=== PATIENT | female | born 1950 | race Caucasian/White ===

== ENCOUNTER 2020-03-06 11:03 | Inpatient (IN) | payer OTHER ==
[~2020-03-06] VITALS: Ht 172.7 cm; Wt 55.0 kg
[2020-03-06] MEDS ORDERED: ondansetron/PF 4mg/2ml inj IV ONE (11:15)
[2020-03-06] MEDS ORDERED: morphine 4 MG/ML inj SYRINge IV ONE (11:15)
[2020-03-06 11:30] LABS: HEMATOCRIT 42.9 % (35.0-45.0); MEAN CORPUSCULAR HEMOGLOBIN 31.8 PG (27.0-31.0); RED BLOOD COUNT 4.54 X10'6 (4.20-5.60); RED CELL DISTRIBUTION WIDTH 13.5 % (11.5-14.5)
[2020-03-06 11:32] LABS: BASOPHILS # (AUTO) 0.1 X10'3 (0-0.2); BASOPHILS % (AUTO) 0.9 % (0-1); EOSINOPHILS # (AUTO) 0.8 X10'3 (0-0.9); EOSINOPHILS % (AUTO) 7.9 % (0-6); HEMOGLOBIN 14.5 g/dl (12.0-16.0); LYMPHOCYTES # (AUTO) 2.7 X10'3 (1.1-4.8); LYMPHOCYTES % (AUTO) 26.1 % (21-51); MEAN CORPUSCULAR HGB CONC 33.7 g/dL (33.0-36.5); MEAN CORPUSCULAR VOLUME 94.5 FL (78-98); MEAN PLATELET VOLUME 8.6 FL (7.4-10.4); MONOCYTES # (AUTO) 0.7 X10'3 (0-0.9); NEUTROPHILS % (AUTO) 58.1 % (42-75); PLATELET COUNT 170 X10'3 (140-440); WHITE BLOOD COUNT 10.3 X10'3 (4.5-11.0)
[2020-03-06 11:48] LABS: ALANINE AMINOTRANSFERASE 19 U/L (12-78); ALBUMIN 3.3 G/DL (3.4-5.0); ALKALINE PHOSPHATASE 55 IU/L (46-116); ANION GAP 8 (8-16); ASPARTATE AMINO TRANSFERASE 15 U/L (10-37); BILIRUBIN,TOTAL 0.4 MG/DL (0.1-1.0); BLOOD UREA NITROGEN 24 MG/DL (7-18); BUN/CREATININE RATIO 18.6 (6.6-38.0); CALCIUM 9.1 MG/DL (8.5-10.1); CHLORIDE 107 MMOL/L (99-107); CREATININE 1.29 MG/DL (0.40-0.90); GLUCOSE 105 MG/DL (70-104); POTASSIUM 4.2 MMOL/L (3.5-5.1); SODIUM 142 MMOL/L (135-145); TOTAL CARBON DIOXIDE 27.2 MMOL/L (24-32); TOTAL PROTEIN 6.5 G/DL (6.4-8.2); eGFR 41 ML/MIN
[2020-03-06] MEDS ORDERED: mag hydrox/Alum hydrox/simeth 30ml oral suspension PO PRN (13:10)
[2020-03-06] MEDS ORDERED: acetaminophen 325mg tablet PO PRN (13:10)
[2020-03-06] MEDS ORDERED: magnesium hydroxide 30ml (MOM) UD suspension PO PRN (13:10)
[2020-03-06 13:37] LABS: CLARITY,URINE SLIGHTLY CLOUDY (Clear); COLOR,URINE YELLOW (Yellow); GLUCOSE, URINE NEGATIVE (Neg); KETONES,URINE NEGATIVE (Neg); LEUKOCYTE ESTERASE ,URINE NEGATIVE (Neg); NITRITES, URINE NEGATIVE (Neg); OCCULT BLOOD,URINE TRACE-INTACT (Neg); PH,URINE 5.5 (4.8-8.0); PROTEIN,URINE 30 mg/dl (Neg); UA COLLECTION TYPE FOLEY CATH; UROBILINOGEN,URINE 0.2 E.U/dL (0.2-1.0)
[2020-03-06 13:44] LABS: MUCUS STRANDS FEW /LPF (Neg); SQUAMOUS EPITHELIAL CELL,UR MODERATE /LPF (FEW)
[2020-03-06 13:46] LABS: BACTERIA,URINE FEW /HPF (Neg); TRANSITIONAL EPI CELLS,URINE FEW /HPF; WBC,URINE 0-4 /HPF (0-4)
--- NOTE | 2020-03-06 13:51 | NUR ---
Jen Marie, daughter, home - [phone] cell - [phone]
[2020-03-06] MEDS ORDERED: GABA300C PO (13:56)
[2020-03-06] MEDS ORDERED: METF500T PO (13:56)
[2020-03-06] MEDS ORDERED: GLIM1TAB6 PO (13:56)
[2020-03-06] MEDS ORDERED: TIOT4MIS5 IH (13:56)
[2020-03-06] MEDS ORDERED: LINA145C PO (13:56)
[2020-03-06] MEDS ORDERED: ATOR-2 PO (13:56)
[2020-03-06] MEDS ORDERED: LISI2.5T89 PO (13:56)
[2020-03-06 14:15] VITALS: BP 156/83
[2020-03-06] MEDS: normal saline 1000ml 1,000 ML IV SCH (16:03)
[2020-03-06] MEDS: pantoprazole 40mg Tablet.DR PO SCH (16:27)
[2020-03-06] MEDS: HYDROcodone/acetaminophen 5mg/325mg tablet PO PRN ×2 (16:28→20:22)
[2020-03-06 18:00] VITALS: BP 129/63
[2020-03-06] MEDS: ipratropium 0.5 MG/2.5ML nebule IH SCH (19:56)
[2020-03-06] MEDS: heparin, porcine 5000 units/ml vial SQ SCH (20:22)
[2020-03-06] MEDS: gabapentin 300mg capsule PO SCH (20:22)
[2020-03-06] MEDS: metFORMIN 500mg tablet PO SCH (20:22)
[2020-03-06 22:00] VITALS: BP 125/70
[2020-03-07] VITALS (20 sets, daily range): BP systolic 107–164; BP diastolic 54–95
[2020-03-07] MEDS: normal saline 1000ml 1,000 ML IV SCH ×3 (01:43→14:58)
[2020-03-07] MEDS: HYDROcodone/acetaminophen 10/325mg tab PO PRN ×2 (01:57→20:46)
[2020-03-07] MEDS: ipratropium 0.5 MG/2.5ML nebule IH SCH ×4 (02:00→20:00)
--- NOTE | 2020-03-07 06:08 | NUR ---
Report given to Patito LAL.
[2020-03-07 06:41] LABS: BASOPHILS # (AUTO) 0.1 X10'3 (0-0.2); BASOPHILS % (AUTO) 0.5 % (0-1); EOSINOPHILS # (AUTO) 0.7 X10'3 (0-0.9); EOSINOPHILS % (AUTO) 7.6 % (0-6); HEMATOCRIT 39.5 % (35.0-45.0); LYMPHOCYTES # (AUTO) 2.7 X10'3 (1.1-4.8); LYMPHOCYTES % (AUTO) 28.9 % (21-51); MEAN CORPUSCULAR HEMOGLOBIN 31.2 PG (27.0-31.0); MEAN CORPUSCULAR VOLUME 94.4 FL (78-98); MEAN PLATELET VOLUME 8.8 FL (7.4-10.4); MONOCYTES # (AUTO) 0.6 X10'3 (0-0.9); MONOCYTES % (AUTO) 6.7 % (2-12); NEUTROPHILS # (AUTO) 5.3 X10'3 (1.8-7.7); NEUTROPHILS % (AUTO) 56.3 % (42-75); PLATELET COUNT 163 X10'3 (140-440); RED BLOOD COUNT 4.19 X10'6 (4.20-5.60); RED CELL DISTRIBUTION WIDTH 13.5 % (11.5-14.5); WHITE BLOOD COUNT 9.5 X10'3 (4.5-11.0)
[2020-03-07 06:55] LABS: ALBUMIN 2.9 G/DL (3.4-5.0); ANION GAP 7 (8-16); BLOOD UREA NITROGEN 23 MG/DL (7-18); BUN/CREATININE RATIO 17.4 (6.6-38.0); CALCIUM 8.4 MG/DL (8.5-10.1); CHLORIDE 106 MMOL/L (99-107); CREATININE 1.32 MG/DL (0.40-0.90); POTASSIUM 4.8 MMOL/L (3.5-5.1); SODIUM 138 MMOL/L (135-145); TOTAL CARBON DIOXIDE 24.8 MMOL/L (24-32); eGFR 40 ML/MIN
[2020-03-07] MEDS: heparin, porcine 5000 units/ml vial SQ SCH ×2 (07:03→20:47)
[2020-03-07 07:09] LABS: GLUCOSE 82 MG/DL (70-104)
[2020-03-07 07:35] LABS: HEMOGLOBIN A1C 6.1 % (4.5-6.2)
[2020-03-07] MEDS: lisinopril 2.5mg tablet PO SCH (08:00)
[2020-03-07] MEDS: atorvastatin 20mg tablet PO SCH (08:00)
[2020-03-07] MEDS ORDERED: ringers solution, lacted 1,000 ML IV SCH (08:29)
[2020-03-07] MEDS ORDERED: ondansetron/PF 4mg/2ml inj IV PRN (08:30)
[2020-03-07] MEDS ORDERED: meperidine/PF 25mg/ml syringe IV PRN ×3 (08:30)
[2020-03-07] MEDS ORDERED: morphine 4 MG/ML inj SYRINge IV PRN (08:30)
[2020-03-07] MEDS ORDERED: proCHLORperazine 10 MG/2 ml inj IV PRN (08:30)
[2020-03-07] MEDS ORDERED: morphine 2 MG/ML inj. syringe IV PRN (08:30)
[2020-03-07] MEDS ORDERED: dextrose ORAL solution 15 GM/59 ML bottle PO PRN (08:55)
[2020-03-07] MEDS ORDERED: dextrose 50%-water 50ml dispensing syringe IV PRN ×2 (08:55)
[2020-03-07] MEDS ORDERED: glucagon, human recombinant 1mg kit SUBCUT PRN (08:55)
[2020-03-07] MEDS ORDERED: MESSAGE TO PHARMACY PO ONE (08:55)
[2020-03-07] MEDS ORDERED: insulin Lispro (HumaLOG) vial - multi-dose SQ SCH (08:55)
[2020-03-07] MEDS: pantoprazole 40mg Tablet.DR PO SCH (09:11)
[2020-03-07] MEDS: gabapentin 300mg capsule PO SCH ×2 (09:12→20:46)
--- NOTE | 2020-03-07 09:20 | NUR ---
Checked pts blood sugar. BS=62 at this time. Received orders per Rukhsana Fernandez NP, to administer D50 now. Orders entered per Rukhsana and administered 25ml of D50 IV @ 0930. Waited approximately 15 minutes and rechecked pts blood sugar which was 168 at 0935. Pt feeling better. Will continue to monitor BG as pt is NPO at this time for surgery today at 1400.
[2020-03-07] MEDS ORDERED: fentaNYL/PF 50MCG/1 ML 2ML syringe ONE (11:02)
[2020-03-07] MEDS ORDERED: MIDAZolam 5mg/5ml vial ONE (11:02)
[2020-03-07] MEDS ORDERED: ceFAZolin 1000mg inj ONE ×2 (11:17)
--- NOTE | 2020-03-07 11:20 | NUR ---
DM Consult: Pt A1C less than 7 and not appropriate for DM ed at this time. Addendum: 03/07/20 at [address] Amended: Links added.
--- NOTE | 2020-03-07 12:02 | NUR ---
Report called to receiving nurse. Transferred via ORTHO BED TO ROOM 4021 Belongings . Special Issues communicated to receiving nurse. PT'S BG WAS 61 AND GLUCOSE SHOT WAS GIVEN.
[2020-03-07] MEDS: dextrose ORAL solution 15 GM/59 ML bottle PO PRN ×2 (12:59→13:36)
--- NOTE | 2020-03-07 13:21 | NUR ---
PTLEASE NOTE 1202 NOTE SHOULD BE 1302 FOR UNIT TO UNIT TRANSFER
[2020-03-07] MEDS: metFORMIN 500mg tablet PO SCH (13:26)
[2020-03-07] MEDS ORDERED: VANCOMYCIN 1,500MG inj. 1,500 MG in normal saline 500ml IV soln 300 ML IV ONE (14:00)
[2020-03-07] MEDS ORDERED: ceFAZolin 1GM/D5W- ADD-VANTAGE 50 ML IV ONE (14:00)
[2020-03-07] MEDS: ondansetron/PF 4mg/2ml inj IV PRN (15:47)
[2020-03-07] MEDS: HYDROmorphone inj. 0.5 MG/0.5 ML DISP.SYRIN IV PRN ×2 (16:00→22:10)
[2020-03-07] MEDS: ceFAZolin 2gm in dextrose, iso 50 ML IV SCH (16:09)
--- NOTE | 2020-03-07 17:24 | NUR ---
Student documentation: I have reviewed interventions, assessments performed and documented by Khadra [facility].
[2020-03-07] MEDS: insulin glargine (Lantus) pen - multi-dose SQ SCH (20:50)
[2020-03-08] MEDS: ceFAZolin 2gm in dextrose, iso 50 ML IV SCH (00:05)
[2020-03-08] MEDS: normal saline 1000ml 1,000 ML IV SCH ×2 (01:35→13:05)
[2020-03-08 02:00] VITALS: BP 164/85
[2020-03-08] MEDS: ipratropium 0.5 MG/2.5ML nebule IH SCH ×4 (02:43→20:00)
[2020-03-08] MEDS: HYDROcodone/acetaminophen 10/325mg tab PO PRN ×3 (02:57→15:46)
[2020-03-08] MEDS: HYDROmorphone inj. 0.5 MG/0.5 ML DISP.SYRIN IV PRN (03:54)
[2020-03-08 06:00] VITALS: BP 152/71
[2020-03-08 06:41] LABS: BASOPHILS % (AUTO) 0.5 % (0-1); EOSINOPHILS # (AUTO) 0.7 X10'3 (0-0.9); EOSINOPHILS % (AUTO) 7.7 % (0-6); HEMATOCRIT 40.3 % (35.0-45.0); HEMOGLOBIN 13.2 g/dl (12.0-16.0); LYMPHOCYTES # (AUTO) 1.8 X10'3 (1.1-4.8); LYMPHOCYTES % (AUTO) 20.2 % (21-51); MEAN CORPUSCULAR HGB CONC 32.8 g/dL (33.0-36.5); MEAN CORPUSCULAR VOLUME 94.5 FL (78-98); MEAN PLATELET VOLUME 8.9 FL (7.4-10.4); MONOCYTES # (AUTO) 0.7 X10'3 (0-0.9); MONOCYTES % (AUTO) 8.1 % (2-12); NEUTROPHILS # (AUTO) 5.6 X10'3 (1.8-7.7); NEUTROPHILS % (AUTO) 63.5 % (42-75); PLATELET COUNT 127 X10'3 (140-440); RED BLOOD COUNT 4.27 X10'6 (4.20-5.60); RED CELL DISTRIBUTION WIDTH 13.3 % (11.5-14.5); WHITE BLOOD COUNT 8.9 X10'3 (4.5-11.0)
--- NOTE | 2020-03-08 06:49 | NUR ---
Report given to Ana Rosa LAL.
--- NOTE | 2020-03-08 06:50 | NUR ---
Patient in room ORTHO 4021. I have received report from LUKASZ TRIVEDI and had the opportunity to ask questions and assume patient care.
[2020-03-08 06:55] LABS: ALBUMIN 2.6 G/DL (3.4-5.0); ANION GAP 9 (8-16); BLOOD UREA NITROGEN 17 MG/DL (7-18); CALCIUM 8.5 MG/DL (8.5-10.1); CHLORIDE 104 MMOL/L (99-107); CREATININE 1.21 MG/DL (0.40-0.90); GLUCOSE 107 MG/DL (70-104); POTASSIUM 4.1 MMOL/L (3.5-5.1); SODIUM 138 MMOL/L (135-145); TOTAL CARBON DIOXIDE 25.4 MMOL/L (24-32); eGFR 44 ML/MIN
--- NOTE | 2020-03-08 07:30 | NUR ---
Patient in room ORTHO 4021. I have received report from Ana Rosa and had the opportunity to ask questions and assume patient care.
--- NOTE | 2020-03-08 07:35 | NUR ---
Problems reprioritized. Patient report given, questions answered & plan of care reviewed with LUKASZ SALOMON.
[2020-03-08] MEDS: atorvastatin 20mg tablet PO SCH (09:12)
[2020-03-08] MEDS: pantoprazole 40mg Tablet.DR PO SCH (09:12)
[2020-03-08] MEDS: gabapentin 300mg capsule PO SCH ×2 (09:12→19:17)
[2020-03-08] MEDS: heparin, porcine 5000 units/ml vial SQ SCH ×2 (09:17→19:17)
[2020-03-08] MEDS: lisinopril 2.5mg tablet PO SCH (09:17)
--- NOTE | 2020-03-08 11:59 | NUR ---
PAGER ID: [phone] MESSAGE: Radha Becerra on ortho, Ms. Tamez in [id number] is requesting med for itching, please advise, thank you
[2020-03-08 13:00] VITALS: BP 106/57
[2020-03-08 18:00] VITALS: BP 148/73
--- NOTE | 2020-03-08 18:02 | NUR ---
Problems reprioritized. Patient report given, questions answered & plan of care reviewed with
[2020-03-08] MEDS: insulin glargine (Lantus) pen - multi-dose SQ SCH (21:00)
[2020-03-08 22:00] VITALS: BP 158/71
[2020-03-09] MEDS: ipratropium 0.5 MG/2.5ML nebule IH SCH ×4 (02:00→20:09)
[2020-03-09] MEDS: HYDROcodone/acetaminophen 10/325mg tab PO PRN ×2 (02:30→07:47)
[2020-03-09 06:00] VITALS: BP 137/66
[2020-03-09 06:12] LABS: ALBUMIN 2.6 G/DL (3.4-5.0); ANION GAP 7 (8-16); BLOOD UREA NITROGEN 17 MG/DL (7-18); BUN/CREATININE RATIO 13.5 (6.6-38.0); CHLORIDE 104 MMOL/L (99-107); CREATININE 1.26 MG/DL (0.40-0.90); GLUCOSE 89 MG/DL (70-104); POTASSIUM 4.2 MMOL/L (3.5-5.1); SODIUM 140 MMOL/L (135-145); eGFR 42 ML/MIN
[2020-03-09 06:14] LABS: BASOPHILS # (AUTO) 0.1 X10'3 (0-0.2); BASOPHILS % (AUTO) 0.6 % (0-1); EOSINOPHILS # (AUTO) 0.7 X10'3 (0-0.9); EOSINOPHILS % (AUTO) 8.3 % (0-6); HEMATOCRIT 38.3 % (35.0-45.0); HEMOGLOBIN 12.7 g/dl (12.0-16.0); LYMPHOCYTES # (AUTO) 1.6 X10'3 (1.1-4.8); LYMPHOCYTES % (AUTO) 18.3 % (21-51); MEAN CORPUSCULAR HEMOGLOBIN 31.4 PG (27.0-31.0); MEAN CORPUSCULAR HGB CONC 33.2 g/dL (33.0-36.5); MEAN CORPUSCULAR VOLUME 94.6 FL (78-98); MONOCYTES # (AUTO) 0.7 X10'3 (0-0.9); MONOCYTES % (AUTO) 7.6 % (2-12); NEUTROPHILS # (AUTO) 5.7 X10'3 (1.8-7.7); NEUTROPHILS % (AUTO) 65.2 % (42-75); PLATELET COUNT 132 X10'3 (140-440); RED BLOOD COUNT 4.05 X10'6 (4.20-5.60); RED CELL DISTRIBUTION WIDTH 13.3 % (11.5-14.5); WHITE BLOOD COUNT 8.8 X10'3 (4.5-11.0)
--- NOTE | 2020-03-09 06:39 | NUR ---
Problems reprioritized. Patient report given, questions answered & plan of care reviewed with LUKASZ Farley.
[2020-03-09] MEDS: atorvastatin 20mg tablet PO SCH (07:47)
[2020-03-09] MEDS: pantoprazole 40mg Tablet.DR PO SCH (07:47)
[2020-03-09] MEDS: gabapentin 300mg capsule PO SCH ×2 (07:47→19:08)
[2020-03-09] MEDS: lisinopril 2.5mg tablet PO SCH (07:48)
[2020-03-09] MEDS: heparin, porcine 5000 units/ml vial SQ SCH ×2 (07:49→19:09)
[2020-03-09] MEDS: ondansetron/PF 4mg/2ml inj IV PRN (09:53)
[2020-03-09 10:00] VITALS: BP 127/72
[2020-03-09] MEDS ORDERED: oxyCODONE/APAP 10/325mg tablet PO PRN (10:00)
[2020-03-09] MEDS: oxyCODONE/APAP 5-325mg tablet PO PRN (17:47)
[2020-03-09 18:00] VITALS: BP 118/63
--- NOTE | 2020-03-09 18:10 | NUR ---
Patient in room ORTHO 4021. I have received report from LUKASZ Farley and had the opportunity to ask questions and assume patient care.
--- NOTE | 2020-03-09 18:19 | NUR ---
Problems reprioritized. Patient report given, questions answered & plan of care reviewed with Jennifer LAL.
[2020-03-09] MEDS: insulin glargine (Lantus) pen - multi-dose SQ SCH (21:00)
[2020-03-09 22:00] VITALS: BP 143/68
[2020-03-10] MEDS: ipratropium 0.5 MG/2.5ML nebule IH SCH ×2 (02:34→08:00)
[2020-03-10 06:00] VITALS: BP 137/72
[2020-03-10 06:25] LABS: BASOPHILS # (AUTO) 0.1 X10'3 (0-0.2); BASOPHILS % (AUTO) 0.9 % (0-1); EOSINOPHILS # (AUTO) 0.8 X10'3 (0-0.9); EOSINOPHILS % (AUTO) 9.5 % (0-6); HEMATOCRIT 34.2 % (35.0-45.0); HEMOGLOBIN 11.4 g/dl (12.0-16.0); LYMPHOCYTES # (AUTO) 1.7 X10'3 (1.1-4.8); LYMPHOCYTES % (AUTO) 19.4 % (21-51); MEAN CORPUSCULAR HEMOGLOBIN 31.3 PG (27.0-31.0); MEAN CORPUSCULAR HGB CONC 33.2 g/dL (33.0-36.5); MEAN CORPUSCULAR VOLUME 94.2 FL (78-98); MEAN PLATELET VOLUME 8.8 FL (7.4-10.4); MONOCYTES # (AUTO) 0.8 X10'3 (0-0.9); MONOCYTES % (AUTO) 9.3 % (2-12); NEUTROPHILS # (AUTO) 5.4 X10'3 (1.8-7.7); NEUTROPHILS % (AUTO) 60.9 % (42-75); PLATELET COUNT 139 X10'3 (140-440); RED BLOOD COUNT 3.63 X10'6 (4.20-5.60); RED CELL DISTRIBUTION WIDTH 13.6 % (11.5-14.5); WHITE BLOOD COUNT 8.8 X10'3 (4.5-11.0)
--- NOTE | 2020-03-10 06:35 | NUR ---
Problems reprioritized. Patient report given, questions answered & plan of care reviewed with LUKASZ Farley.
[2020-03-10 06:41] LABS: ALBUMIN 2.4 G/DL (3.4-5.0); ANION GAP 6 (8-16); BLOOD UREA NITROGEN 19 MG/DL (7-18); BUN/CREATININE RATIO 12.3 (6.6-38.0); CALCIUM 8.7 MG/DL (8.5-10.1); CHLORIDE 104 MMOL/L (99-107); CREATININE 1.55 MG/DL (0.40-0.90); GLUCOSE 104 MG/DL (70-104); POTASSIUM 4.2 MMOL/L (3.5-5.1); SODIUM 138 MMOL/L (135-145); TOTAL CARBON DIOXIDE 28.5 MMOL/L (24-32); eGFR 33 ML/MIN
[2020-03-10] MEDS: pantoprazole 40mg Tablet.DR PO SCH (07:32)
[2020-03-10] MEDS: gabapentin 300mg capsule PO SCH (07:32)
[2020-03-10] MEDS: atorvastatin 20mg tablet PO SCH (07:33)
[2020-03-10] MEDS: lisinopril 2.5mg tablet PO SCH (07:33)
[2020-03-10] MEDS: heparin, porcine 5000 units/ml vial SQ SCH (07:35)
[2020-03-10 10:00] VITALS: BP 121/65
[2020-03-10] MEDS ORDERED: HYDR-4383 PO (11:28)
[2020-03-10] MEDS: oxyCODONE/APAP 5-325mg tablet PO PRN (14:17)
--- NOTE | 2020-03-10 15:10 | NUR ---
Patient discharged. Unable to attain a walker for patient due to insurance not willing to pay. Daughter of patient went to buy one for patient. All belongings gathered and sent with patient. Narcotic prescription handed to patient. Discharge instructions given to patient.
== END 2020-03-10 15:02 | disposition home or self-care (01) | DRG 482 ==
LOC: ER 11:03 → ED HOLD 13:06 → ORTHO 4S 14:18
PROVIDERS: ADMIT Family Medicine; ATTEND Family Medicine
PROC: 0QH736Z Insertion of Intramedullary Internal Fixation Device into Left Upper Femur, Percutaneous Approach (ICD-10-PCS; principal; 2020-03-07 10:55)
DX: S72.145A Nondisplaced intertrochanteric fracture of left femur, initial encounter for closed fracture (principal); I10 Essential (primary) hypertension; E11.8 Type 2 diabetes mellitus with unspecified complications; K21.9 Gastro-esophageal reflux disease without esophagitis; Y93.89 Activity, other specified; Y92.89 Other specified places as the place of occurrence of the external cause; Y99.8 Other external cause status; E11.9 Type 2 diabetes mellitus without complications; F17.210 Nicotine dependence, cigarettes, uncomplicated; W01.0XXA Fall on same level from slipping, tripping and stumbling without subsequent striking against object, initial encounter; Z79.82 Long term (current) use of aspirin; Z90.710 Acquired absence of both cervix and uterus
CPT/HCPCS: 96374; 96375; 99285; Z7506; 36415; 71045; 72192; 73502; 76000; 80048; 80053; 81001; 82948; 83036; 85025; 85610; 86885; 86900; 86901; 87081; 93005; 94640; 94760; 97110; 97116; 97161; 97530; A4618; A7000; C1713; G0378; J0690; J1170; J1644; J1815; J2250; J2270; J2405; J3010; J7030; J7120